=== PATIENT | male | born 1980 | race Hispanic/Latino ===

== ENCOUNTER 2021-10-22 11:22 | Emergency (ER) | payer OTHER ==
[~2021-10-22] VITALS: Ht 167.6 cm; Wt 79.4 kg
[2021-10-22] MEDS ORDERED: MUPIROCIN22 GM TOP (12:14)
== END 2021-10-22 12:37 | disposition home or self-care (01) ==
LOC: ED 11:22
DX: S61.210A Laceration without foreign body of right index finger without damage to nail, initial encounter (principal); Z23 Encounter for immunization; W26.8XXA Contact with other sharp object(s), not elsewhere classified, initial encounter
CPT/HCPCS: 12001; 90471; 90715; 99282-25